=== PATIENT | female | born 1980 | race Caucasian/White ===

== ENCOUNTER 2017-01-16 11:51 | Emergency (ER) | payer OTHER ==
[2017-01-16 12:12] VITALS: BP 154/95; PULSE 100; TEMP 98.6; BMI 22.8
--- NOTE | 2017-01-16 15:16 | PDOC ---
History of Present Illness - General Chief Complaint: Injury Stated Complaint: NOSE INJURY Time Seen by Provider: 01/16/17 13:44 - History of Present Illness Initial Comments: 01/16/17 15:13 CHIEF COMPLAINT: HISTORY OF PRESENT ILLNESS: 37 yo F presnts to fast track s/p injury with shampoo bottle. PAtient states shampoo bottle fell on her nose this morning and she is concerned she broke her nose. REVIEW OF SYSTEMS General/Constitutional: Denies fever or chills. Denies weakness, weight change. HEENT: Pain to nose. Denies change in vision. Denies ear pain or discharge. Denies sore throat. Cardiovascular: Denies chest pain or shortness of breath. Respiratory: Denies cough, wheezing, or hemoptysis. Gastrointestinal: Denies nausea, vomiting, diarrhea or constipation. Denies rectal bleeding. Genitourinary: Denies dysuria, frequency, or change in urination. Musculoskeletal: Denies joint or muscle swelling or pain. Denies neck or back pain. Skin and breasts: Denies rash or easy bruising. PHYSICAL EXAM General Appearance: Well-appearing, appropriately dressed. No apparent distress , no intoxication. HEENT: No ecchymosis, racoon eyes, swelling or deformity to nose. EOMI, PERRLA, normal ENT inspection, normal voice, TMs normal, pharynx normal. No conjunctival pallor. No photophobia, scleral icterus. Respiratory/Chest: Lungs CTAB. No shortness of breath, chest tenderness, respiratory distress, accessory muscle use. No crackles, rales, rhonchi, stridor , wheezing, dullness Cardiovascular: RRR. S1, S2. Musculoskeletal/Extremities: Normal inspection. FROM of all extremities, normal capillary refill. Pelvis Stable. No CVA tenderness. No tenderness to extremities, pedal edema, swelling, erythema or deformity. Integumentary: Appropriate color, dry, warm. No cyanosis, erythema, jaundice or rash Neurologic: chief meteorologist II-XII intact. Fully oriented, alert. Appropriate mood/affect. Motor strength 5/5. No appreciable EOM palsy, facial droop or sensory deficit. Past History - Past Medical History Allergies/Adverse Reactions: Allergies Allergy/AdvReac Type Severity Reaction Status Date / Time No Known Drug Allergies Allergy Verified 01/16/17 12:08 Home Medications: Ambulatory Orders NK [No Known Home Medication] 04/01/16 Asthma: No Cancer: No Cardiac Disorders: No Diabetes: No HTN: No Seizures: No Thyroid Disease: No Other medical history: denies - Reproductive History (#): 2 Para: 1 - Immunization History Immunization Up to Date: Yes - Suicide/Smoking/Psychosocial Hx Smoking Status: Yes Smoking History: Former smoker Have you smoked in the past 12 months: Yes Number of Cigarettes Smoked Daily: 2 If you are a former smoker, when did you quit?: 2012 Information on smoking cessation initiated: No Hx Alcohol Use: No Drug/Substance Use Hx: No Substance Use Type: None Hx Substance Use Treatment: No *Physical Exam - Vital Signs Last Vital Signs Temp Pulse Resp BP Pulse Ox 98.6 F 100 H 18 154/95 100 01/16/17 12:08 01/16/17 12:08 01/16/17 12:08 01/16/17 12:08 01/16/17 12:08 Medical Decision Making - Medical Decision Making 01/16/17 15:16 nasal bone x-ray x-ray negative for fracture ibuprofen pain control *DC/Admit/Observation/Transfer Diagnosis at time of Disposition: Injury of nose Qualifiers: Encounter type: initial encounter Qualified Code(s): S09.92XA - Unspecified injury of nose, initial encounter - Discharge Dispostion Disposition: HOME Condition at time of disposition: Stable Admit: No - Referrals Referrals: García Saenz MD [Primary Care Provider] - - Patient Instructions Additional Instructions: Please take ibuprofen for swelling and pain to your nose. Follow up with the ear, nose throat doctor if pain persists past 3-5 days. If you develop any fever, chills, nausea, vomiting, increased pain, or any new or worsening symptoms, please return to the ER.
== END 2017-01-16 15:42 | disposition home or self-care (01) ==
LOC: JERFT 11:51
DX: S09.92XA Unspecified injury of nose, initial encounter (principal); W20.8XXA Other cause of strike by thrown, projected or falling object, initial encounter; Y93.89 Activity, other specified; Y92.89 Other specified places as the place of occurrence of the external cause; Y99.8 Other external cause status
CPT/HCPCS: 70160-TC; 99281-25

== ENCOUNTER 2017-12-18 12:54 | Inpatient (IN) | payer OTHER ==
[2017-12-18] MEDS ORDERED: BUTORPHANOL TARTRATE 1 MG/ML VIAL IVPB ONE (13:12)
[2017-12-18] MEDS ORDERED: PROMETHAZINE HCL 25 MG/1 ML VIAL IVPB ONE (13:12)
[2017-12-18] MEDS ORDERED: AMPICILLIN SODIUM 2 GM VIAL ONE (13:14)
[2017-12-18] MEDS ORDERED: AMPICILLIN - 2 GM in SODIUM CHLORIDE 100 ML IVPB ONE (13:14)
[2017-12-18] MEDS: ELECTROLYTE-148 SOLN 1,000 ML IV SCH (13:15)
--- NOTE | 2017-12-18 13:15 | HP ---
Past Medical History - Smoking History Smoking history: Former smoker Have you smoked in the past 12 months: Yes Aproximately how many cigarettes per day: 2 If you are a former smoker, when did you quit?: 2013 - Alcohol/Substance Use Hx Alcohol Use: No Home Medications - Allergies Allergies/Adverse Reactions: Allergies Allergy/AdvReac Type Severity Reaction Status Date / Time No Known Drug Allergies Allergy Verified 01/16/17 12:08 - Home Medications Home Medications: Ambulatory Orders NK [No Known Home Medication] 04/01/16 Assessment/Plan Active labor at 40 weeks admit to L&D IV pain management as needed GBS positive - for ampicillin prophylaxis anticipate
[2017-12-18 13:53] LABS: BASO % 0.2 % (0-2.0); EOS % 0.1 % (0-4.5); LYMPH % 6.4 % (8-40); MCH 33.1 pg (25.7-33.7); MCHC 33.5 g/dl (32.0-36.0); MEAN PLT VOLUME 11.1 fl (7.5-11.1); MONO % 3.8 % (3.8-10.2); NEUT % 89.5 % (42.8-82.8); PLATELET COUNT 123 K/MM3 (134-434); RBC 3.94 M/mm3 (3.60-5.2); RDW 12.4 % (11.6-15.6); WHITE BLOOD COUNT 13.4 K/mm3 (4.0-10.0)
[2017-12-18 14:13] LABS: ANION GAP 11 MMOL/L (8-16); BLOOD UREA NITROGEN 10 mg/dL (7-18); CALCIUM 8.8 mg/dL (8.5-10.1); CHLORIDE 104 mmol/L (98-107); CO2 23 mmol/L (21-32); CREATININE 0.6 mg/dL (0.55-1.02); GLUCOSE,RANDOM 113 mg/dL (74-106); POTASSIUM 3.9 mmol/L (3.5-5.1); SODIUM 138 mmol/L (136-145)
[2017-12-18 14:19] LABS: ACTIVATED PTT 31.2 SECONDS (25.2-36.5)
[2017-12-18 14:24] VITALS: BMI 28.5
[2017-12-18 14:37] LABS: INR 0.94 (0.83-1.09); PROTHROMBIN TIME (PATIENT) 10.6 SEC (9.7-13.0)
[2017-12-18] MEDS ORDERED: FENTANYL/BUPIVACAINE/NS/PF - PCEA - 50 ML DISP.SYRIN EP ONE ×2 (14:48→19:27)
[2017-12-18] MEDS ORDERED: NALOXONE HCL 0.4 MG/ML VIAL IVPUSH PRN (16:58)
[2017-12-18] MEDS ORDERED: FENTANYL/BUPIVACAINE/NS/PF - PCEA - 50 ML DISP.SYRIN EP SCH (17:00)
--- NOTE | 2017-12-18 17:30 | PN ---
Ante-Partal Exam - Subjective Subjective: Pt comfortable with epidural. Vital Signs: Vital Signs Temperature 98.5 F 12/18/17 15:00 Pulse Rate 73 12/18/17 17:00 Respiratory Rate 18 12/18/17 17:00 Blood Pressure 110/66 12/18/17 17:00 O2 Sat by Pulse Oximetry (%) 99 12/18/17 17:00 Bleeding: No Headache: No Visual changes: No Right upper quadrant pain: No Pain (scale 1-10): 0 - Contractions Contractions: Yes Regularity: Irregular Intensity: Mild - Exam during Labor Heart Rate: 125 Variability: Moderate Category: I Monitor Accelerations: Present Monitor Decelerations: None Exam: Vaginal Dilatation (cm): 7 Effacement (%): 90 Amniotic Membrane Status: Intact Station: 0 - Assessment/Plan Assessment/Plan: 37 y/o with SIUP at 40 weeks, labor FHTS cat 1 labor, s/p epidural continue expectant management GBS positive, s/p 1 dose antibiotics, 2nd dose due at 1730, will await ROM until after 2nd dose antibiotics anticipate
[2017-12-18] MEDS ORDERED: AMPICILLIN SODIUM 1 GM VIAL ONE (17:35)
[2017-12-18] MEDS ORDERED: AMPICILLIN - 1 GM in SODIUM CHLORIDE 100 ML IVPB SCH (18:00)
[2017-12-18] MEDS ORDERED: TUBERCULIN PPD 5 TU/0.1ML SYRINGE (IN PATIENT USE ONLY) ID ONE (19:45)
[2017-12-18] MEDS ORDERED: OXYTOCIN 20 UNITS in 0.9% NS 20 UNIT/1,000 ML INFUS.BAG IV ONE (19:50)
[2017-12-18] MEDS ORDERED: LIDOCAINE HCL 1% PRESERVATIVE FREE - 30ML VIAL ONE (19:50)
[2017-12-18] MEDS: OXYTOCIN 20 UNITS in 0.9% NS 20 UNIT/1,000 ML INFUS.BAG IV SCH (20:03)
--- NOTE | 2017-12-18 20:19 | PN ---
Delivery - Delivery Vaginal Delivery: No Problems Type of Anesthesia: Epidural Episiotomy/Laceration: None EBL (cc): 250 Delivery, Single - Stages of Labor Date of Delivery: 12/18/17 Time of Delivery: 20:01 Date Placenta Delivered: 12/18/17 Time Placenta Delivered: 20:02 Placenta: Yes: Spontaneous - Condition of Panel Assembler/Vibration Engineer Present: No Gender: Male Position: Right, OA - 1 Minute Total Score: 9 5 Minutes Total Score: 9 - Feeding Plan Initial Plan: Exclusive throughout hospitalization Remarks - Remarks Remarks: Uncomplicated of baby boy from YANELI position across intact perineum tight nuchal cord noted, clamped and cut after delivery of the head remainder of delivered with ease (anterior shoulder right) mom stable baby to well baby nursery sponge count correct
[2017-12-18] MEDS ORDERED: BENZOCAINE 20% 57 GM BOTTLE TP PRN (20:23)
[2017-12-18] MEDS ORDERED: BISACODYL 10 MG SUPP.RECT RC PRN (20:23)
[2017-12-18] MEDS ORDERED: BENZOCAINE 28 GM HEMORRHOIDAL OINTMENT TP PRN (20:23)
[2017-12-18] MEDS ORDERED: WITCH HAZEL 50% (TUCKS) 40 PAD/JAR PAD TP PRN (20:23)
[2017-12-18] MEDS ORDERED: METHYLERGONOVINE MALEATE 0.2 MG/1 ML AMP IM PRN (20:23)
[2017-12-18] MEDS ORDERED: IBUPROFEN 600 MG TABLET (FP) PO ONE (21:27)
[2017-12-18] MEDS ORDERED: ACETAMINOPHEN 325 MG TABLET (FP) ONE (21:27)
[2017-12-18] MEDS: ACETAMINOPHEN 325 MG TABLET (FP) PO PRN (21:30)
[2017-12-18] MEDS: SENNOSIDES/DOCUSATE COMBO (SENNA PLUS) TABLET (UD) PO PRN (23:15)
[2017-12-18] MEDS: IBUPROFEN 600 MG TABLET (FP) PO PRN (23:15)
[2017-12-19] MEDS: ACETAMINOPHEN 325 MG TABLET (FP) PO PRN (04:01)
[2017-12-19] MEDS: IBUPROFEN 600 MG TABLET (FP) PO PRN (04:02)
[2017-12-19 07:20] LABS: BASO % 0.2 % (0-2.0); EOS % 0.3 % (0-4.5); HEMATOCRIT 35.1 % (32.4-45.2); LYMPH % 10.5 % (8-40); MCH 33.7 pg (25.7-33.7); MCHC 34.2 g/dl (32.0-36.0); MEAN CELL VOLUME 98.3 fl (80-96); MONO % 9.1 % (3.8-10.2); NEUT % 79.9 % (42.8-82.8); PLATELET COUNT 96 K/MM3 (134-434); RBC 3.56 M/mm3 (3.60-5.2); RDW 12.5 % (11.6-15.6); WHITE BLOOD COUNT 14.8 K/mm3 (4.0-10.0)
[2017-12-19] MEDS: FERROUS SO4 325 MG TABLET (FP) PO SCH ×3 (09:05→18:37)
[2017-12-19] MEDS: OXYTOCIN 20 UNITS in 0.9% NS 20 UNIT/1,000 ML INFUS.BAG IV SCH (09:05)
--- NOTE | 2017-12-19 09:36 | PN ---
Post Progress Note - Subjective Subjective: Pt seen/evaluated and doing well. Had some heavy lochia overnight, lightening up now. no Cp/SOB/F/C/TOTH. Some cramping. Type of Delivery: Vital Signs: Vital Signs Temperature 98.5 F 12/19/17 05:56 Pulse Rate 77 12/19/17 05:56 Respiratory Rate 20 12/19/17 05:56 Blood Pressure 122/62 12/19/17 05:56 O2 Sat by Pulse Oximetry (%) 99 12/18/17 21:00 Breast Exam: Yes: Soft Uterus: Yes: Fundus Firm Abdomen/GI: Yes: Abdomen soft, Passing flatus, Tolerating PO. No: Abdominal Distention, Tender Lochia: Yes: Rubra Lochia, amount: Moderate Extremities: Yes: Calves non-tender. No: Calf tenderness, Edema Perineum: Yes: Intact Activity: Ambulating - Labs Labs: CBC WBC 14.8 K/mm3 (4.0-10.0) H 12/19/17 06:00 RBC 3.56 M/mm3 (3.60-5.2) L 12/19/17 06:00 Hgb 12.0 GM/dL (10.7-15.3) 12/19/17 06:00 Hct 35.1 % (32.4-45.2) 12/19/17 06:00 MCV 98.3 fl (80-96) H 12/19/17 06:00 MCH 33.7 pg (25.7-33.7) 12/19/17 06:00 MCHC 34.2 g/dl (32.0-36.0) 12/19/17 06:00 RDW 12.5 % (11.6-15.6) 12/19/17 06:00 Plt Count 96 K/MM3 (134-434) L D 12/19/17 06:00 MPV 11.0 fl (7.5-11.1) 12/19/17 06:00 Absolute Neuts (auto) 11.9 K/mm3 (1.5-8.0) H 12/19/17 06:00 Neutrophils % 79.9 % (42.8-82.8) 12/19/17 06:00 Lymphocytes % 10.5 % (8-40) D 12/19/17 06:00 Monocytes % 9.1 % (3.8-10.2) D 12/19/17 06:00 Eosinophils % 0.3 % (0-4.5) D 12/19/17 06:00 Basophils % 0.2 % (0-2.0) 12/19/17 06:00 Nucleated RBC % 0 % (0-0) 12/19/17 06:00 Problem List - Problems (1) Normal vaginal delivery Code(s): O80 - ENCOUNTER FOR FULL-TERM UNCOMPLICATED DELIVERY Assessment/Plan 37 y/o PPD#1 s/p normal AFVSS hgb 12 regular diet po pain meds routine care
[2017-12-19] MEDS ORDERED: METHYLERGONOVINE MALEATE 0.2 MG TABLET (FP) PO PRN (09:46)
[2017-12-19] MEDS: PRENATAL VITAMINS W/ FOLIC ACID TABLET (FP) PO SCH ×2 (12:39→14:16)
[2017-12-19] MEDS: ACYCLOVIR 400 MG TABLET PO SCH ×2 (12:39→22:02)
[2017-12-19] MEDS: SENNOSIDES/DOCUSATE COMBO (SENNA PLUS) TABLET (UD) PO PRN (22:02)
[2017-12-20] MEDS: IBUPROFEN 600 MG TABLET (FP) PO PRN (03:10)
[2017-12-20] MEDS: ACETAMINOPHEN 325 MG TABLET (FP) PO PRN (03:10)
[2017-12-20] MEDS: OXYTOCIN 20 UNITS in 0.9% NS 20 UNIT/1,000 ML INFUS.BAG IV SCH (03:15)
[2017-12-20] MEDS: ELECTROLYTE-148 SOLN 1,000 ML IV SCH (03:15)
--- NOTE | 2017-12-20 07:54 | DS ---
Physical Exam-BRICK PICKER Vital Signs: Vital Signs Temperature 98.5 F 12/19/17 20:48 Pulse Rate 88 12/19/17 20:48 Respiratory Rate 20 12/19/17 20:48 Blood Pressure 105/69 12/19/17 20:48 O2 Sat by Pulse Oximetry (%) 99 12/18/17 21:00 Constitutional: Yes: Well Nourished, No Distress, Calm Eyes: Yes: WNL, Conjunctiva Clear HENT: Yes: WNL, Atraumatic, Normocephalic Neck: Yes: WNL, Supple Cardiovascular: Yes: WNL, Regular Rate and Rhythm Respiratory: Yes: WNL, Regular Gastrointestinal: Yes: WNL, Normal Bowel Sounds ...Rectal Exam: Yes: WNL Pelvis: Yes: WNL External Genitalia: Yes: Normal Internal Exam Deferred: Yes ....Post : Yes: Uterus firm, Uterus non-tender Breast(s): Yes: WNL Musculoskeletal: Yes: WNL Extremities: Yes: WNL Edema: No Integumentary: Yes: WNL Wound/Incision: Yes: Clean/Dry, Well Approximated Neurological: Yes: WNL, Alert, Oriented ...Motor Strength: WNL Psychiatric: Yes: WNL, Alert, Oriented Labs: CBC, BMP 12/19/17 06:00 12/18/17 13:28 Delivery - Delivery Vaginal Delivery: No Problems (discharge home todaf/u in 4 weeks) Type of Anesthesia: Epidural Episiotomy/Laceration: None EBL (cc): 250 Delivery, Single - Stages of Labor Date 1st Stage Initiatied: 12/18/17 Time 1st Stage Initiated: 05:00 Date 2nd Stage Initiated: 12/18/17 Time 2nd Stage Initiated: 19:45 Date of Delivery: 12/18/17 Time of Delivery: 20:01 Time Placenta Delivered: 20:02 Placenta: Yes: Spontaneous - Condition of Instrument Assembler/Financial Planning Consultant Present: No Infant Gender: Male Weight: 7 lb 12 oz Position: Right, OA Total Hours ROM (Hrs/Mins): 17MIN - 1 Minute Total Score: 9 5 Minutes Total Score: 9 - [place] Feeding Plan Initial Plan: Exclusive throughout hospitalization Discharge Summary Reason For Visit: LABOR ADMISSION Current Active Problems Normal vaginal delivery (Acute) - Instructions - Home Medications Comprehensive Discharge Medication List: Ambulatory Orders Acyclovir [Zovirax -] 400 mg PO BID 12/18/17 Vit 93/Iron Fum/Folic [ Formula Tablet] 1 each PO DAILY
[2017-12-20] MEDS: FERROUS SO4 325 MG TABLET (FP) PO SCH ×2 (08:25→11:50)
[2017-12-20] MEDS: PRENATAL VITAMINS W/ FOLIC ACID TABLET (FP) PO SCH ×2 (09:17→09:19)
[2017-12-20] MEDS: ACYCLOVIR 400 MG TABLET PO SCH (09:17)
[2017-12-20 09:41] VITALS: BP 106/58; PULSE 68; TEMP 98
== END 2017-12-20 13:10 | disposition home or self-care (01) | DRG 560 ==
LOC: JLDR 12:54 → J3W 21:35
PROVIDERS: ADMIT Obstetrics & Gynecology; ATTEND Obstetrics & Gynecology
PROC: 10E0XZZ Delivery of Products of Conception, External Approach (ICD-10-PCS; principal; 2017-12-18)
DX: O48.0 Post-term pregnancy (principal); O99.824 Streptococcus B carrier state complicating childbirth; Z3A.40 40 weeks gestation of pregnancy; Z37.0 Single live birth
CPT/HCPCS: 36415; 59409; 80048; 85025; 85610; 85730; 86593; 86850; 86900; 86901

== ENCOUNTER 2018-04-01 08:17 | Day surgery (SDC) | payer OTHER ==
[2018-03-26 09:35] VITALS: BMI 23.2
[2018-04-01] MEDS ORDERED: PROPOFOL 20 ML ONE (08:22)
[2018-04-01 08:45] VITALS: TEMP 97.9
[2018-04-01 10:36] VITALS: BP 107/63; PULSE 88
--- NOTE | 2018-04-02 17:28 | PATH ---
Surgical Pathology Report Patient Name: NATALIA CROFT Med. Rec. #: [id number] /Age/Gender: 1980 (Age: 38) / F Account: [id number] Location: [facility] Taken: 04/01/2018 Received: 04/01/2018 Reported: 04/02/2018 Physicians: Dante Goetz M.D. Specimen(s) Received A: BX TERMINAL ILEUM B: BX SIGMOID RECTOSIGMOID Clinical History Unexplained diarrhea Postoperative diagnosis: Rule out colitis Final Diagnosis A. TERMINAL ILEUM, BIOPSY: ILEAL MUCOSA WITHOUT SIGNIFICANT PATHOLOGIC FINDINGS. B. RECTUM, RECTOSIGMOID, BIOPSY: COLONIC MUCOSA WITH SMALL LYMPHOID AGGREGATE. Electronically Signed Fay Valero M.D. Gross Description A. Received in formalin, labeled "biopsy terminal ileum" are 2 davis, irregular portions of soft tissue averaging 0.3 cm. in greatest dimension. The specimens are submitted in toto in one cassette. B. Received in formalin, labeled "biopsy rectum, rectosigmoid" are 3 davis, irregular portions of soft tissue ranging from 0.1-0.3 cm. in greatest dimension. The specimens are submitted in toto in one cassette. 04/01/201804/01/2018
== END 2018-04-01 10:40 | disposition home or self-care (01) ==
LOC: FASU-ENDO 08:17
PROVIDERS: ATTEND Internal Medicine Gastroenterology
PROC: 0DBN8ZX Excision of Sigmoid Colon, Via Natural or Artificial Opening Endoscopic, Diagnostic (ICD-10-PCS; 2018-04-01)
PROC: 0DBP8ZX Excision of Rectum, Via Natural or Artificial Opening Endoscopic, Diagnostic (ICD-10-PCS; 2018-04-01)
PROC: 0DBB8ZX Excision of Ileum, Via Natural or Artificial Opening Endoscopic, Diagnostic (ICD-10-PCS; principal; 2018-04-01 09:00)
DX: K62.89 Other specified diseases of anus and rectum (principal); R19.4 Change in bowel habit; R19.7 Diarrhea, unspecified
CPT/HCPCS: 84703; 88305-TC

== ENCOUNTER 2018-04-20 08:50 | Day surgery (SDC) | payer OTHER ==
[2018-04-20 09:30] VITALS: BMI 24.3
[2018-04-20 10:51] VITALS: TEMP 98.4
[2018-04-20 11:11] VITALS: BP 121/88; PULSE 81
--- NOTE | 2018-04-23 11:34 | PATH ---
Surgical Pathology Report Patient Name: NATALIA CROFT Med. Rec. #: [id number] /Age/Gender: 1980 (Age: 38) / F Account: [id number] [facility] Taken: 04/20/2018 Received: 04/20/2018 Reported: 04/23/2018 Physicians: Dante Goetz M.D. Specimen(s) Received A: BX DUODENUM B: BX ANTRUM Clinical History GERD Postoperative diagnosis: Rule out celiac, gastritis Final Diagnosis A. DUODENUM, BIOPSY: DUODENAL MUCOSA WITH NO PATHOLOGIC FINDINGS. Note: Features suggestive of celiac disease are not identified in this biopsy. B. ANTRUM, BIOPSY: MILD CHRONIC GASTRITIS. IMMUNOSTAIN IS NEGATIVE FOR H. PYLORI ORGANISMS. Electronically Signed Amanda Sharma M.D. Gross Description A. Received in formalin, labeled "duodenum" are 2 davis, irregular portions of soft tissue averaging 0.4 cm. in greatest dimension. The specimens are submitted in toto in one cassette. B. Received in formalin, labeled "antrum" are 2 davis, irregular portions of soft tissue measuring 0.3 and 0.5 cm. in greatest dimension. The specimens are submitted in toto in one cassette. 04/20/201804/20/2018
== END 2018-04-20 11:15 | disposition home or self-care (01) ==
LOC: FASU-ENDO 08:50
PROVIDERS: ATTEND Internal Medicine Gastroenterology
PROC: 0DB68ZX Excision of Stomach, Via Natural or Artificial Opening Endoscopic, Diagnostic (ICD-10-PCS; 2018-04-20)
PROC: 0DB98ZX Excision of Duodenum, Via Natural or Artificial Opening Endoscopic, Diagnostic (ICD-10-PCS; principal; 2018-04-20 10:28)
DX: K29.50 Unspecified chronic gastritis without bleeding (principal); R19.7 Diarrhea, unspecified
CPT/HCPCS: 84703; 88305-TC; 88342-TC

== ENCOUNTER 2019-10-19 16:03 | Emergency (ER) | payer OTHER ==
--- NOTE | 2019-10-19 16:19 | PDOC ---
Rapid Medical Evaluation Time Seen by Provider: 10/19/19 16:16 Medical Evaluation: Allergies Allergy/AdvReac Type Severity Reaction Status Date / Time No Known Drug Allergies Allergy Verified 10/19/19 16:13 10/19/19 16:16 CC: fell last week after slipping on slip and slide on top of grass. no loc but now has dizziness, headache, + nausea especially with rapid movement. took tylenol for pain with lessened the pressure. On no blood thinners. Exam: vss, eomi, ambulatory and coordinated Plan: head ct Discharge Disposition - Diagnosis Head injury - Referrals - Patient Instructions - Post Discharge Activity
[2019-10-19 16:20] VITALS: BP 146/98; PULSE 74; TEMP 98.4; BMI 23.0
[2019-10-19] MEDS ORDERED: ACETAMINOPHEN 1000 MG/100 ML VIAL (NON FORMULARY) IVPB ONE (17:13)
[2019-10-19] MEDS ORDERED: SODIUM CHLORIDE 0.9% 500 ML INFUS.BAG IV ONE (17:13)
--- NOTE | 2019-10-19 17:14 | PDOC ---
History of Present Illness - General Chief Complaint: Headache Stated Complaint: R/O CONCUSSION Time Seen by Provider: 10/19/19 16:16 - History of Present Illness Initial Comments: 10/19/19 17:10 39 y/o F w/o CM presents for evaluation of TOTH's intermittent nausea, lower back and global body pain after a fall 8 days ago. Past History - Medical History Allergies/Adverse Reactions: Allergies Allergy/AdvReac Type Severity Reaction Status Date / Time No Known Drug Allergies Allergy Verified 10/19/19 16:13 Home Medications: Ambulatory Orders NK [No Known Home Medication] 10/19/19 Anemia: No Asthma: No Cancer: No Cardiac Disorders: No CVA: No COPD: No CHF: No Dementia: No Diabetes: No GI Disorders: Yes (COLONOSCOPY) Disorders: No HTN: No Hypercholesterolemia: No Liver Disease: No Seizures: No Thyroid Disease: No - Reproductive History (#): 2 Para: 1 - Immunization History Immunization Up to Date: Yes - Psycho-Social/Smoking History Smoking Status: Yes Smoking History: Never smoked Have you smoked in the past 12 months: No Number of Cigarettes Smoked Daily: 2 If you are a former smoker, when did you quit?: 2013 - Substance Abuse Hx (Audit-C & DAST Scrn) How often the patient has a drink containing alcohol: Never Score: In Men: 4 or > Positive; In Women: 3 or > Positive: 0 Screen Result (Pos requires Nsg. Audit-10AR): Negative In the last yr the pt used illegal drug/Rx for NonMed reason: No Score: Yes response is considered Positive: 0 Screen Result (Positive result requires Nsg. DAST-10): Negative Review of Systems - Review of Systems ABD/GI: Yes: Nausea Neurological: Yes: Headache *Physical Exam - Vital Signs Last Vital Signs Temp Pulse Resp BP Pulse Ox 98.4 F 74 16 146/98 100 10/19/19 16:14 10/19/19 16:14 10/19/19 16:14 10/19/19 16:14 10/19/19 16:14 - Physical Exam 10/19/19 18:13 GENERAL: The patient is awake, alert, and fully oriented, in no acute distress. HEAD: Normal with no signs of trauma. EYES: sclera anicteric, conjunctiva clear. ENT: Ears normal tympanic membranes normal oropharynx clear uvula midline NECK: Normal range of motion LUNGS: Breath sounds equal, clear to auscultation bilaterally. No wheezes, and no crackles. HEART: S1 and S2 without murmur, rub or gallop. ABDOMEN: Soft, nontender, normoactive bowel sounds. No guarding, no rebound. No masses. EXTREMITIES: Normal range of motion, no edema. No clubbing or cyanosis. No cords, erythema, or tenderness. NEUROLOGICAL: Cranial nerves II through XII grossly intact.Negative Romberg's PSYCH: Normal mood, normal affect. SKIN: Warm, Dry, normal turgor, no rashes or lesions noted. General Appearance: Yes: Appropriately Dressed. No: Apparent Distress HEENT: positive: Symmetrical Neck: positive: Supple Respiratory/Chest: negative: Respiratory Distress Cardiovascular: positive: Regular Rhythm Musculoskeletal: positive: Normal Inspection Extremity: positive: Normal Inspection Integumentary: positive: Normal Color, Dry, Warm Neurologic: positive: security inspector II-XII NML intact, Fully Oriented, Motor Strength 5/5 Medical Decision Making - Medical Decision Making 10/19/19 17:13 39-year-old female without comorbidities postconcussive Symptoms. Will reset her pain with IV Tylenol and fluids have her follow-up with neurology. She has total body muscle soreness from her fall 8 days ago. No focal deficits on examination. 10/19/19 17:14 She assures me there is no chance of as she is on oral contraception. We will give her IV Tylenol and fluids. 10/19/19 18:13 Patient feeling better after IV fluids and Tylenol follow-up with neurology I have reviewed the pathophysiology with the patient. They are in agreement with the treatment plan all questions were answered to their satisfaction. Understanding for follow-up without fail was also conveyed to the patient. Again they are in agreement. Discharge - Discharge Information Problems reviewed: Yes Clinical Impression/Diagnosis: Head injury, Post concussive syndrome Condition: Stable Disposition: HOME - Admission Yes - Follow up/Referral Referrals: García Saenz MD [Primary Care Provider] - Rigo Hess MD [Staff Physician] - - Patient Discharge Instructions Additional Instructions: Tylenol and Motrin as directed for pain. Return to the emergency room for worsening symptoms. No strenuous activity until cleared by neurology. Without fail follow-up with neurology in 2 to 3 days for further evaluation and treatment options. - Post Discharge Activity
[2019-10-19] MEDS ORDERED: ACETAMINOPHEN INJECTION 100 ML IVPB ONE (17:49)
== END 2019-10-19 18:40 | disposition home or self-care (01) ==
LOC: JER 16:03
PROC: 3E033NZ Introduction of Analgesics, Hypnotics, Sedatives into Peripheral Vein, Percutaneous Approach (ICD-10-PCS; principal; 2019-10-19)
DX: S09.90XA Unspecified injury of head, initial encounter (principal); F07.81 Postconcussional syndrome
CPT/HCPCS: 70450-TC; 96374; 99284-25; J0131

== ENCOUNTER 2023-05-10 16:41 | Emergency (ER) | payer OTHER ==
[2023-05-10 16:56] VITALS: BP 155/79; PULSE 98; RESP 16; BMI 21.9
[2023-05-10] MEDS ORDERED: IBUPROFEN 600 MG TABLET (FP) PO ONE ×2 (17:16→17:20)
[2023-05-10] MEDS ORDERED: ALBUTEROL SO4 2.5/IPRATROPIUM 0.5 INH SOL 3 ML VIAL.NEB. NEB ONE ×4 (17:16→17:58)
[2023-05-10] MEDS ORDERED: DEXAMETHASONE 4 MG TABLET (FP) PO ONE (17:17)
[2023-05-10] MEDS ORDERED: DEXAMETHASONE SOD PHOSPHATE 10 MG/1 ML VIAL ONE (17:20)
[2023-05-10 18:30] VITALS: TEMP 100.1
== END 2023-05-10 18:37 | disposition home or self-care (01) ==
LOC: FER 16:41
PROC: 3E033NZ Introduction of Analgesics, Hypnotics, Sedatives into Peripheral Vein, Percutaneous Approach (ICD-10-PCS; principal; 2023-05-10)
PROC: 3E0F7GC Introduction of Other Therapeutic Substance into Respiratory Tract, Via Natural or Artificial Opening (ICD-10-PCS; 2023-05-10)
PROC: 3E0F7GC Introduction of Other Therapeutic Substance into Respiratory Tract, Via Natural or Artificial Opening (ICD-10-PCS; 2023-05-10)
DX: R50.9 Fever, unspecified (principal); R11.2 Nausea with vomiting, unspecified; R07.0 Pain in throat; B34.9 Viral infection, unspecified; Z20.822 Contact with and (suspected) exposure to COVID-19
CPT/HCPCS: 0241U-QW; 71046-TC-FY; 81025; 99284-25

== ENCOUNTER 2023-05-17 18:36 | Emergency (ER) | payer OTHER ==
[2023-05-17 19:05] VITALS: BP 135/86; PULSE 85; RESP 18; TEMP 99.3; BMI 25.0
[2023-05-17] MEDS ORDERED: KETOROLAC TROMETHAMINE 30 MG/1 ML VIAL IM ONE (19:21)
[2023-05-17] MEDS ORDERED: KETOROLAC TROMETHAMINE 30 MG/1 ML VIAL ONE (19:22)
[2023-05-17] MEDS ORDERED: AMOXICILLIN 500 MG CAPSULE (FP) PO ONE (20:17)
[2023-05-17] MEDS ORDERED: AZITHROMYCIN 500 MG TABLET PO ONE (20:17)
[2023-05-17] MEDS ORDERED: AMOXICILLIN 250 MG CAPSULE ONE (20:19)
== END 2023-05-17 20:43 | disposition home or self-care (01) ==
LOC: FER 18:36
PROC: 3E0233Z Introduction of Anti-inflammatory into Muscle, Percutaneous Approach (ICD-10-PCS; principal; 2023-05-17)
DX: R05.9 Cough, unspecified (principal); R07.81 Pleurodynia; J18.9 Pneumonia, unspecified organism; J11.1 Influenza due to unidentified influenza virus with other respiratory manifestations
CPT/HCPCS: 71046-TC-FY; 71101-TC-RT-FY; 87651; 99284-25